=== PATIENT | male | born 1970 | race Caucasian/White ===

== ENCOUNTER 2020-02-21 19:45 | Emergency (ER) | payer OTHER ==
[2020-02-21] MEDS ORDERED: HYDROmorphone 1 MG/ML Syringe IVPUSH ONE (20:08)
[2020-02-21] MEDS ORDERED: Diphtheria,Pertussis(Acell),Tetanus Vaccine 0.5 ML SDV IM ONE (20:09)
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
[2020-02-21] MEDS ORDERED: Sodium Chloride 0.9% 1,000 ML IV SCH (20:15)
[2020-02-21] MEDS ORDERED: Sodium Chloride 0.9% 10 ML SDV IV SCH (20:15)
[2020-02-21] MEDS ORDERED: Ondansetron 4 MG/2 ML SDV IVPUSH ONE (20:44)
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
== END 2020-02-22 00:15 ==
LOC: JP.ED 19:45
DX: S52.251A Displaced comminuted fracture of shaft of ulna, right arm, initial encounter for closed fracture (principal); S52.301A Unspecified fracture of shaft of right radius, initial encounter for closed fracture; S61.412A Laceration without foreign body of left hand, initial encounter; S80.12XA Contusion of left lower leg, initial encounter; T15.12XA Foreign body in conjunctival sac, left eye, initial encounter; T15.11XA Foreign body in conjunctival sac, right eye, initial encounter; Z23 Encounter for immunization; V89.2XXA Person injured in unspecified motor-vehicle accident, traffic, initial encounter
CPT/HCPCS: 36415; 71046; 72170; 73090; 73552; 73560; 80053; 80307; 85025; 90471; 90715; 96361; 96374; 96375; 99285; J1170; J2405; J7030